=== PATIENT | male | born 1945 | race Caucasian/White ===

== ENCOUNTER 2018-08-07 10:12 | Observation (INO) | payer MEDICARE ==
--- NOTE | 2018-08-07 10:41 | ED ---
Head Injury - HPI Summary HPI Summary: Patient presents with fall 2 days ago. He reports he was walking [place] with his groceries when he accidentally slipped and hit his head on a piece of ice. He denies loss of consciousness although he had a headache at the time. Headache has resolved. Additionally he denies change in vision, nausea, vomiting, numbness, tingling, weakness. A few friends saw him fall on the side of the road and helped him get back home. States he's been doing pretty well since the fall other than he has some neck stiffness. He has not used heat nor ice nor has he taken any pain medication. But after calling Dr. Mcarthur to relay his fall and these symptoms, he was advised to come here to be evaluated. He denies taking any anticoagulant medication but does take an antihypertensive. He also has a history of Parkinson's dz and epilepsy however reports last seizure was 20 years ago. Follows w/ Dr. Mcarthur. No other injuries or complaints as a result of fall. He reports he lives alone and is able to cook and clean for himself. - History Of Current Complaint Chief Complaint: EDHeadInjury Stated Complaint: FALL/HIT HEAD 2 DAYS AGO Time Seen by Provider: 08/07/18 10:22 Hx Obtained From: Patient Pain Intensity: 0 - Allergies/Home Medications Allergies/Adverse Reactions: Allergies Allergy/AdvReac Type Severity Reaction Status Date / Time No Known Allergies Allergy Verified 08/07/18 10:13 Home Medications: Home Medications Acetaminophen [Tylenol Extra Strength] 500 - 1,000 mg PO Q6HR PRN 08/07/18 [ History Confirmed 08/07/18] Calcium Polycarbophil TAB* [Fibercon TAB*] 625 mg PO BID PRN 08/07/18 [History Confirmed 08/07/18] Cholecalciferol (Vitamin D3) [Vitamin D3] 800 unit PO DAILY 08/07/18 [History Confirmed 08/07/18] Divalproex DR TAB(*) [Tawana AVITIA(*)] 1,000 mg PO BEDTIME 08/07/18 [History Confirmed 08/07/18] Divalproex DR TAB(*) [Tawana AVITIA(*)] 500 mg PO QAM 08/07/18 [History Confirmed 08/07/18] Furosemide TAB* [Lasix TAB*] 20 mg PO DAILY 08/07/18 [History Confirmed 08/07/18 ] Loperamide HCl [Imodium A-D] 2 mg PO BID PRN 08/07/18 [History Confirmed ] Oxybutynin XL TAB* [Ditropan XL TAB*] 15 mg PO DAILY 08/07/18 [History Confirmed 08/07/18] Spironolactone/HCTZ 25-25 MG* [Aldactazide 25-25*] 1 tab PO QAM 08/07/18 [ History Confirmed 08/07/18] Triamcinolone 0.1% CREAM(NF) [Kenalog Cream 0.1%(NF)] 1 applic TOPICAL BID PRN 08/07/18 [History Confirmed 08/07/18] PMH/Surg Hx/FS Hx/Imm Hx Previously Healthy: Yes Endocrine/Hematology History: Denies: Hx Anticoagulant Therapy, Hx Blood Disorders, Hx Unexplained Bleeding Cardiovascular History: Reports: Hx Hypertension Sensory History: Reports: Hx Contacts or Glasses Opthamlomology History: Reports: Hx Contacts or Glasses Neurological History: Reports: Hx Seizures - last seizure 20 years ago, Other Neuro Impairments/Disorders - Parkinson's disease Infectious Disease History: No Infectious Disease History: Denies: Traveled Outside the [place] in Last 30 Days - Social History Occupation: Unemployed Lives: Alone Alcohol Use: None Hx Substance Use: No Substance Use Type: Reports: None Hx Tobacco Use: No Smoking Status (MU): Never Smoked Tobacco Review of Systems Constitutional: Negative Negative: Fatigue Eyes: Negative Negative: Photophobia, Blurred Vision, Diplopia ENT: Negative Negative: Epistaxis Cardiovascular: Negative Negative: Chest Pain Respiratory: Negative Negative: Shortness Of Breath Gastrointestinal: Negative Negative: Abdominal Pain, Vomiting, Nausea Positive: no symptoms reported Positive: Arthralgia Skin: Negative Positive: Headache - yesterday - resolved today Psychological: Normal All Other Systems Reviewed And Are Negative: Yes Physical Exam Triage Information Reviewed: Yes Vital Signs On Initial Exam: Initial Vitals Temp Pulse Resp BP Pulse Ox 96.8 F 62 16 123/75 94 08/07/18 10:13 08/07/18 10:13 08/07/18 10:13 08/07/18 10:13 08/07/18 10:13 Vital Signs Reviewed: Yes Appearance: Positive: Well-Appearing, No Pain Distress, Well-Nourished Skin: Positive: Warm, Skin Color Reflects Adequate Perfusion, Dry - no ecchymosis, no abrasions nor lacerations Head/Face: Positive: Normal Head/Face Inspection - no battlesign, no racoon eyes , no step off - NTTP Eyes: Positive: Normal, EOMI, CRIS - no photophobia, Conjunctiva Clear ENT: Positive: Pharynx normal - mucosa dry, TMs normal - no hemotympanum. Negative: Nasal drainage - no epistaxis Dental: Negative: Dental Fracture @ Neck: Positive: Supple, Tenderness @ - posterior central spine w/ mild TTP Respiratory/Lung Sounds: Positive: Breath Sounds Present Cardiovascular: Positive: S1, S2 Abdomen Description: Positive: Nontender, Soft Musculoskeletal: Positive: Pain @ - cervical spine w/ mild TTP, Other - ambulates independently Neurological: Positive: Alert, Oriented to Person Place, Time, CN Intact II-III , Other - tremor - Rt UE Psychiatric: Positive: Normal - pleasant, polite, cooperative. Negative: Affect /Mood Appropriate - somewhat blunted affect - Jackie Coma Scale Best Eye Response: 4 - Spontaneous Best Motor Response: 6 - Obeys Commands Best Verbal Response: 5 - Oriented Coma Scale Total: 15 Diagnostics - Vital Signs Vital Signs Temp Pulse Resp BP Pulse Ox 08/07/18 10:13 96.8 F 62 16 123/75 94 - Laboratory Result Diagrams: 08/07/18 13:02 Lab Statement: Any lab studies that have been ordered have been reviewed, and results considered in the medical decision making process. Head Injury Course/Dx Course Of Treatment: CT brain: chronic Right frontal subdural hematoma vs. hygroma - no acute intracranial pathology. Discussed w/ Dr. Stein who recommends supervision - since he lives alone and brother cannot be with him to supervise/observe (spoke w/ brother today - Roshan - lives in [place]). Will admit for observation as he has a h/o falls (confirmed by pt and brother) and needs observation with repeat CT scan in 1-[address] Stein[address] CT cervical spine: no acute findings, DDD - Diagnoses Provider Diagnoses: Fall from slipping on snow, Degenerative cervical disc, Chronic subdural hematoma Discharge - Sign-Out/Discharge Documenting (check all that apply): Patient Departure - Discharge Plan Condition: Stable Disposition: ADMITTED TO [facility] - Billing Disposition and Condition Condition: STABLE Disposition: Admitted to [facility]
[2018-08-07 14:01] LABS: Hematocrit 39 % (42-52); Mean Corpuscular HGB Conc 34 g/dl (31-36); Mean Corpuscular Hemoglobin 32 pg (27-31); Mean Corpuscular Volume 95 fL (80-94); Mean Platelet Volume 9.7 fL (7.4-10.4); Platelet Count 121 10^3/ul (150-450); Red Blood Count 4.08 10^6/ul (4.00-5.40); Red Cell Distribution Width 14 % (10.5-15)
[2018-08-07 14:11] LABS: Activated Partial Thrombo Time 27.4 seconds (26.0-36.3); INR 0.96 (0.77-1.02)
[2018-08-07] MEDS ORDERED: Dextrose 50% Syringe 50 ML* 25 GM/50 ML SYRINGE IV PUSH PRN (14:29)
[2018-08-07] MEDS ORDERED: Acetaminophen TAB* 325 MG PO PRN (14:29)
[2018-08-07 14:41] LABS: Albumin 3.7 g/dL (3.2-5.2); BUN/Creatinine Ratio 28.3 (8-20); Calcium 9.8 mg/dL (8.6-10.3); EGFR African American 98.4 (>60); EGFR Non-African American 81.3 (>60); Globulin 3.8 g/dL (2-4); Potassium 4.3 mmol/L (3.5-5.0); Total Bilirubin 0.4 mg/dL (0.2-1.0); Total Protein 7.5 g/dL (6.4-8.9)
[2018-08-07] MEDS: Insulin LISPRO* 1 UNITS UNIT SUBCUT SCH (16:32)
--- NOTE | 2018-08-07 16:43 | HP ---
CC: Dr. Villeda; Dr. Sanders * HISTORY AND PHYSICAL: DATE OF ADMISSION: 08/07/18 PRIMARY CARE PROVIDER: Dr. Villeda. ATTENDING PHYSICIAN WHILE IN THE HOSPITAL: Dr. Shirley Hickey * (report dictated by Abhay Malik NP). CHIEF COMPLAINT: Fall. HISTORY OF PRESENT ILLNESS: Mr. Gordillo is a 72-year-old male patient who has a history of Parkinson's, epilepsy, hypertension, diabetes, GERD and history of schizophrenia and prostate enlargement, BPH, who comes into the ED today. He says 2 days ago, he was dragging his groceries through the snow and he got into some slush and unfortunately he had an episode where he lost his footing, he fell and he hit his head on a chunk of ice. His friends told him to go to the ER that day, but he said he was fine and he did not want to come in, but over the last 2 days, they have been talking to him and convincing him to come in, so he decided to come in today. He denied having any headache. Denied feeling drowsy. Denied feeling lightheaded or dizzy. He says he has not had any worsening weakness as to one side to an extremity. He denied having any trouble with speech. He said he has been feeling well, but he was getting concerned because his friends were still asking him to come be evaluated. He denied having any chest pain or shortness of breath. There has been no fevers or chills. Denies having any abdominal pain or nausea or vomiting. He came in and he was found to have a chronic subdural or possibly a hygroma and because of this, we were asked to evaluate for admission. PAST MEDICAL HISTORY: Significant for: 1. Epilepsy. 2. Hypertension. 3. Diabetes. 4. BPH. 5. GERD. 6. Parkinson's. 7. Schizophrenia. PAST SURGICAL HISTORY: She has had a tonsillectomy and cholecystectomy. MEDICATIONS: Home meds according to the list that he provided includes: 1. Lasix 20 mg p.o. daily. 2. Carbidopa/levodopa 2 tablets at 0610, 1400, 1800. 3. Oxybutynin 15 mg daily. 4. Proscar 5 mg daily. 5. Vitamin D3 400 units p.o. b.i.d. 6. Depakote 500 mg in the morning, 1000 mg at bedtime. 7. Abilify 10 mg daily. 8. Flomax 0.4 mg daily. 9. Prilosec 20 mg p.o. daily. 10. Toprol-XL 25 mg at bedtime. 11. FiberCon 625 mg p.o. b.i.d. as needed. 12. Aldactazide 1 tablet p.o. daily. 13. Ketoconazole cream 1 application topically daily as needed. 14. Triamcinolone cream 1 application topically b.i.d. as needed. 15. Claritin 10 mg p.o. daily as needed. 16. Imodium 2 mg p.o. b.i.d. as needed. 17. Tylenol 500 to 1000 mg every 6 hours as needed. ALLERGIES TO MEDICATIONS: Include no known drug allergies. FAMILY HISTORY: Both his parents had cancer. SOCIAL HISTORY: He lives alone. He does have an aide that helps him daily. He does not smoke. He does not drink. His surrogate decision maker is his sister, Heena. REVIEW OF SYSTEMS: There is no documented fever. He denied having any significant weight change. He denies having any ear discharge. There was no rhinorrhea. He denies having any sore throat. No thyroid enlargement. Denies having any chest pain. There is no orthopnea, no nocturnal dyspnea and there was no abdominal pain. There is no nausea, no vomiting, no dysuria, no frequency, no seizure. No loss of consciousness. No pruritus. No skin ulcerations. Review of 14 systems was completed, all others negative. PHYSICAL EXAMINATION GENERAL: At this time, Mr. Gordillo is a 72-year-old male patient. He is sitting in the ED stretcher. He appears to be well nourished and well developed. He does not appear to be in any acute distress. VITAL SIGNS: Blood pressure 123/70, pulse 52, respirations 16, O2 sat 94%, temperature 96.8. HEENT: Head: Atraumatic, normocephalic. Eyes: EOMs are intact. Sclerae anicteric and not pale. Throat: Oral mucosa appears to be moist. No oropharyngeal erythema. NECK: Supple. LUNGS: Clear to auscultation bilaterally. There was no wheezes, rales, or rhonchi. HEART: Sounds S1, S2. He had a regular rate and rhythm. No murmurs, rubs, or gallops are appreciated. ABDOMEN: Soft, it was flat, nontender. Bowel sounds were present. EXTREMITIES: Pulses were 2+ throughout. He is moving all 4 extremities with 5/ 5 strength. NEUROLOGIC: He is awake. He is alert. He is oriented x3. He does have a resting tremor to his upper extremities. He has no gross focal deficits. SKIN: Grossly intact. DIAGNOSTIC STUDIES/LAB DATA: His labs revealed a WBC of 5.0, RBC of 4.08, hemoglobin of 13.0, hematocrit 39, platelet count of 121. INR 0.96, PTT 27.4. Sodium was 141, potassium 4.3, chloride of 108, bicarb 28, BUN 26, creatinine 0.92, glucose of 91, calcium 9.8. Total bili 0.4, AST 18, ALT 11, alk phos 55. Albumin 3.7. His valproic acid is pending. He had a brain CT obtained today, which showed chronic right frontal subdural hematoma versus hygroma. No acute intracranial pathology. Cervical spine CT obtained today showed no acute fracture of the cervical spine is noted, degenerative disk disease at multiple levels. Old medical records were reviewed. ASSESSMENT AND PLAN: Mr. Gordillo is a 72-year-old male patient coming into the ED today with complaints of a mechanical fall 2 days ago, now with CT findings of possible subdural hematoma which is chronic. He will be admitted under observation status for: 1. Status post fall, possible subdural hematoma versus hygroma. Dr. Sanders was consulted by the ED, who recommended observation. I will go ahead and observe him with frequent neuro checks. I will check a CT in the morning and I will get a neurosurgical evaluation. He appears to be stable at this point. 2. Epilepsy. We are checking a valproic acid level. We will continue his meds as prescribed and we will continue with seizure precautions. 3. Hypertension. Continue meds as prescribed. 4. Diabetes. I am putting him on a lispro sliding scale. 5. Benign prostatic hypertrophy. Continue meds as prescribed. 6. Gastroesophageal reflux disease. Continue PPI therapy. 7. Parkinson's. Continue his carbidopa/levodopa. I ordered a PT evaluation for him and he can follow with Dr. Mcarthur. 8. Schizophrenia. Continue with supportive care. 9. DVT prophylaxis. Because of the concern of subdural hematoma, I will place him on SCDs. 10. Fluids, electrolytes, and nutrition. He can have a healthy diet. 11. Code status: Full code. TIME SPENT: Time spent on the admission was 60 minutes, greater than half of the time was spent [id number] with the patient obtaining my history and physical, other half of the time was spent going over the plan of care with the patient and implementing plan of care. I did discuss the plan of care with my attending, Dr. Hickey, she is in agreement. ABHAY MALIK, TIMBER GIRDLER [id number]/CPS #: [id number] KATRIN
[2018-08-07] MEDS: Carbidopa/Levodop 25/100 MG TAB(*) PO SCH (17:36)
[2018-08-07] MEDS ORDERED: Divalproex DR TAB(*) 500 MG PO SCH (21:00)
[2018-08-07] MEDS ORDERED: Metoprolol Succinate XL TAB* 25 MG PO SCH (21:00)
[2018-08-08] MEDS: Carbidopa/Levodop 25/100 MG TAB(*) PO SCH ×3 (06:04→15:06)
[2018-08-08 06:11] LABS: ABS Basophils 0.1 10^3/ul (0-0.2); ABS Eosinophils 0.2 10^3/ul (0-0.6); ABS Lymphocytes 1.3 10^3/ul (1.0-4.8); ABS Monocytes 0.4 10^3/ul (0-0.8); ABS Neutrophils 2.4 10^3/ul (1.5-7.7); ABS Nucleated RBC 0 10^3/ul; Eosinophil % 4.4 %; Hematocrit 38 % (42-52); Hemoglobin 12.9 g/dl (14.0-18.0); Lymphocyte % 29.2 %; Mean Corpuscular HGB Conc 34 g/dl (31-36); Mean Corpuscular Hemoglobin 32 pg (27-31); Mean Corpuscular Volume 94 fL (80-94); Mean Platelet Volume 8.7 fL (7.4-10.4); Nucleated Red Blood Cells % 0.2; Platelet Count 115 10^3/ul (150-450); Red Blood Count 4.05 10^6/ul (4.00-5.40); Red Cell Distribution Width 15 % (10.5-15); White Blood Count 4.4 10^3/ul (3.5-10.8)
[2018-08-08 06:16] LABS: INR 0.98 (0.77-1.02)
[2018-08-08 06:31] LABS: BUN/Creatinine Ratio 23.2 (8-20); Calcium 9.9 mg/dL (8.6-10.3); EGFR African American 94.8 (>60); EGFR Non-African American 78.4 (>60); Potassium 4.2 mmol/L (3.5-5.0)
--- NOTE | 2018-08-08 08:35 | PN ---
Progress Note - Progress Note Date of Service: 08/07/18 Note: Patient was seen yesterday. Full note dictated.([id number]) 72 yom reported fall [address] findings cw Rt frontal chronic SDH vs hygroma. Repeat CT stable. No NS intervention needed at this point. May repeat CT of head in 1 month and follow up in our office or with his PCP or Dr Mcarthur. Angela Sanders MD
[2018-08-08] MEDS: Insulin LISPRO* 1 UNITS UNIT SUBCUT SCH ×2 (08:38→14:23)
[2018-08-08] MEDS ORDERED: Finasteride TAB* 5 MG PO SCH (09:00)
[2018-08-08] MEDS ORDERED: Oxybutynin XL TAB* 5 MG PO SCH (09:00)
[2018-08-08] MEDS ORDERED: Divalproex DR TAB(*) 500 MG PO SCH (09:00)
[2018-08-08] MEDS ORDERED: ARIPiprazole TAB* 5 MG PO SCH (09:00)
[2018-08-08] MEDS ORDERED: Spironolactone/HCTZ 25-25 MG* 1 TAB PO SCH (09:00)
[2018-08-08] MEDS ORDERED: Tamsulosin CAP* 0.4 MG PO SCH (09:00)
[2018-08-08] MEDS ORDERED: Furosemide TAB* 20 MG PO SCH (09:00)
[2018-08-08] MEDS ORDERED: Pantoprazole TAB * 40 MG TAB PO SCH (09:00)
--- NOTE | 2018-08-08 10:01 | CONS ---
CONSULTATION REPORT: DATE OF CONSULT: 08/07/18 HISTORY OF PRESENT ILLNESS: The patient is a very pleasant 72-year-old gentleman who reports he sustained a fall 2 days prior to his admission while he was attempting to cross the road. At that time, the patient did not have loss of consciousness. He contacted Dr. Mcarthur's office, his neurologist, and he was directed to the emergency room where a CT scan of the brain revealed a small right frontal subdural chronic hematoma versus hygroma. For this reason and because of his history of falls, he was admitted to the hospital. I was requested to see the patient by ED and internal medicine team regarding above CT scan findings. The patient was seen on 08/07/18 in the floor. The patient denies any loss of consciousness, denies loss of memory. He reports that he has no neck or back pain. He denies any headache. He denies any weakness, numbness, or tingling of extremities. Of note, the patient has history of Parkinson disease and epilepsy, with last seizure approximately 20 years ago and he is followed by Dr. Mcarthur. The patient ambulates with some difficulties. He denies any urinary or GI incontinence. The patient lives alone. PAST MEDICAL HISTORY: Hypertension, seizures, Parkinson disease. HOME MEDICATIONS: The patient was on: 1. Acetaminophen. 2. Calcium. 3. Cholecalciferol. 4. Divalproex. 5. Furosemide. 6. Loperamide. 7. Oxybutynin. 8. Spironolactone. 9. Triamcinolone. ALLERGIES: No known drug allergies. SOCIAL HISTORY: Tobacco negative. Alcohol negative. Recreational drug use negative. PHYSICAL EXAM: The patient is not in acute distress. He is awake, alert, oriented x3. His pupils are equal and reactive. Cranial nerves II through XII are grossly intact. Motor 4-5/5 in all extremities. No pronator drift. Of note, the patient has a resting tremor consistent with his diagnosis of Parkinson disease and also cogwheel rigidity in both upper extremities. Sensory is grossly intact to light touch. Deep tendon reflexes +1 bilaterally. No clonus, no Babinski. Huma's negative. Straight leg test negative on the lying position. He has no tenderness to palpation of the thoracic or lumbar spine. He has free range of motion of the cervical spine. DIAGNOSTIC STUDIES/LAB DATA: The patient had a CT scan of the brain that revealed a small right frontal subdural chronic hematoma versus hygroma without significant mass effect with preservation of sulci. ASSESSMENT: The patient is a very pleasant 72-year-old gentleman with history of Parkinson disease and seizures who reports a fall [address] scan findings consistent with chronic right frontal subdural hematoma versus hygroma. PLAN: The patient was admitted for observation. On the following morning, he had a repeat CT scan of the brain that does not show any changes. I do not think that the patient is in need of neurosurgical intervention at this point. There is no mass effect and there is no evidence of neurological compromise or deficit related to this collection in my opinion. Based on the appearance of the CT scan, I think a repeat CT scan in approximately 1 month would be appropriate for him. We will be happy to follow the patient in the office or the patient may follow with his PCP or Dr. Mcarthur in the future. Thank you for allowing us to participate in the care of this patient. Please do not hesitate to contact our office in case you have any further questions or concerns regarding the care of this patient. [id number]/CPS #: [id number] MTDD
[2018-08-08 17:24] VITALS: BP 105/64
--- NOTE | 2018-08-08 21:37 | DS ---
CC: Dr. Villeda; Dr. Sanders.* DISCHARGE SUMMARY: DATE OF ADMISSION: 08/07/18 DATE OF DISCHARGE: 08/08/18 ATTENDING PHYSICIAN: Shirley Hickey MD ATTENDING PHYSICIAN FOR TODAY: Danni Muñoz DO * (DICTATED BY CESAR BOCANEGRA NP) PRIMARY CARE PROVIDER: Dr. Villeda. NEUROSURGEON: Dr. Sanders. HOSPITAL COURSE: Please refer to admission H and P from yesterday, but in short , Mr. Gordillo is a 72-year-old male patient who lives at [facility]. He has got pretty extensive neurologic history in the form of Parkinson's and epilepsy, also has history of schizophrenia, diabetes, and hypertension. The patient does live independently and has assistance in his home. He was food shopping in the snow, slipped on some slush the day before admission and hit his head on the ice. The patient was urged to go to the emergency department by family and friends at that point, the patient declined. The patient did come to the ED the following day after being convinced by family to come for evaluation. The patient had imaging at that time, which revealed subdural hematoma versus a hygroma. The patient was seen by Dr. Sanders who recommended a repeat CT in the morning. Neurosurgical evaluation indicated that there was no acute need for intervention or surgery. The patient's findings remain stable. The patient remained neurologically intact. He did not show any seizure activity. Blood pressure, his diabetes, his Parkinson's, and mood all remained at baseline. The patient did have physical therapy evaluation, which revealed he was at his baseline. The patient expressed his wish to be discharged back to home where he has continued supportive care. The patient did not meet criteria for subacute rehab, he will therefore be discharged to home. REVIEW OF SYSTEMS ON THE DAY OF DISCHARGE: The patient denies any fever, fatigue, or chills; no headache, no dizziness, no blurred vision; no chest pain , no shortness of breath; no nausea, vomiting, or diarrhea; no arthralgias or myalgias. His tremors are at baseline, and he has no further constitutional complaints. PHYSICAL EXAMINATION: Reveals an older-appearing male, tremulous at baseline, but in no acute distress. His vital signs today are: Blood pressure 138/82, heart rate 59, respiratory rate 20, O2 saturation 97% on room air with a temperature of 97.4. HEENT: The patient is atraumatic, normocephalic. PERRLA with nonicteric sclerae. Oral mucosa is moist. Dentition is poor. Tongue is midline. Neck is supple, nontender. No JVD noted, no carotid bruit auscultated. Lungs are clear bilaterally to auscultation. No wheezing, rhonchi , or rales. Cardiovascular: S1, S2 present. No murmurs, gallops, or rubs noted. Slightly bradycardic. Rhythm is regular. Abdomen is soft, nontender, nondistended. Positive bowel sounds in all four quadrants. is deferred. Musculoskeletal: There is no clubbing, no cyanosis. He has trace bipedal edema. Gross sensation is intact. Motor also intact. Neurologic: Tremors at rest consistent with his Parkinson's disease, no seizure activity, no further focal deficits noted. Psychiatric: He is cooperative and appropriate. LABORATORY DATA: WBC 4.4, RBC 4.05, hemoglobin 12.9, hematocrit 38, platelets 115; sodium 140, potassium 4.2, chloride 107, CO2 27; BUN 22, creatinine 0.95, GFR 78.4, glucose 93, calcium 9.9. Liver function within normal limits. Valproic acid level is 55.0. INR is 0.98. IMAGING: CT of the spine showed no fracture of the cervical spine, degenerative disc disease at multiple levels. Initial CT of the brain dated shows a chronic right frontal subdural hematoma versus hygroma with no further acute intracranial pathology. Repeat CT of the head dated 08/08/18 shows no evidence of acute intracranial hemorrhage, persistent extraaxial fluid collection located overlying the right frontal lobe, which was also noted on prior study the day before and is unchanged. Per Dr. Sanders from Neurosurgery, who evaluated the patient, he evaluated the repeat CT, which is stable and recommends no acute neurosurgical intervention is warranted. The patient may follow up with repeat CT of the head in 1 month, if any additional symptomatology is noted. DISCHARGE DIAGNOSES: 1. Mechanical fall with small subdural hematoma, stable. 2. History of epilepsy, stable. 3. History of hypertension, stable. 4. History of diabetes, blood glucose, stable. 5. History of BPH, stable. 6. History of gastroesophageal reflux disease, stable. 7. History of Parkinson's, at baseline. 8. History of schizophrenia, at baseline. MEDICATIONS FOR DISCHARGE: No changes in his home medication regimen. These include: 1. Lasix 20 mg p.o. daily. 2. Sinemet 25/100 2 tabs p.o. at 0600, 10 o'clock, 1400, and 1800. 3. Ditropan XL 30 mg p.o. daily. 4. Proscar 5 mg p.o. daily. 5. Vitamin D3 400 units p.o. b.i.d. 6. Depakote 500 mg in the morning, 1000 mg at bedtime. 7. Abilify 10 mg p.o. daily. 8. Flomax 0.4 mg daily. 9. Omeprazole 20 mg in the morning. 10. Metoprolol succinate XL 25 mg at bedtime. 11. FiberCon 625 mg b.i.d. p.r.n. 12. Aldactazide 25/25 1 tab q. a.m. 13. Nizoral 2% cream apply daily as needed. 14. Kenalog cream apply daily as needed. 15. Claritin 10 mg p.o. daily as needed. 16. Imodium AD 2 mg p.o. b.i.d. as needed. 17. Extra Strength Tylenol 500 to 1000 mg q.6 hours as needed for pain. DISPOSITION: The patient will be discharged back to [facility] with his regular home services. The patient does have extended care program in the form of nursing services and physical therapy services in the home and he is ambulatory and currently at his baseline. DIET: Heart healthy as tolerated. FOLLOWUP: The patient is instructed to follow up with his primary care provider , Dr. Villeda, in the next 4 to 7 days and Neurosurgery. If Dr. Villeda feels it is warranted, he can refer him back to see Dr. Sanders for a followup CT in 30 days and followup appointment in the office, if needed. DISPOSITION: Discharged to home in stable condition. All questions were answered. The patient stated his understanding of discharge instructions, medications, and followups. TIME SPENT: 35 minutes interfacing with the patient and staff regarding discharge plan of care. CESAR BOCANEGRA, DOCK ATTENDANT [id number]/[facility] #: [id number] BR[facility]XCARE HEALTH SYSTEMIrene
== END 2018-08-08 17:18 | disposition home or self-care (01) ==
LOC: ED 10:12 → MEDTELE 14:25
PROVIDERS: ADMIT Internal Medicine; ATTEND Hospitalist
DX: S06.5X9A Traumatic subdural hemorrhage with loss of consciousness of unspecified duration, initial encounter (principal); W00.0XXA Fall on same level due to ice and snow, initial encounter; Y92.9 Unspecified place or not applicable; G40.909 Epilepsy, unspecified, not intractable, without status epilepticus; I10 Essential (primary) hypertension; E11.9 Type 2 diabetes mellitus without complications; N40.0 Benign prostatic hyperplasia without lower urinary tract symptoms; K21.9 Gastro-esophageal reflux disease without esophagitis; G20 Parkinson's disease; F20.9 Schizophrenia, unspecified; R51 Headache
CPT/HCPCS: 36415; 70450; 72125; 80048; 80053; 80164; 85025; 85027; 85610; 85730; 96374; 99282; A9270-GY; G8978-GP-CI; G8979-GP-CH

== ENCOUNTER → 2018-10-27 18:14 | Emergency (ER) | payer MEDICARE ==
--- NOTE | 2018-10-27 18:29 | ED ---
HPI Chest Pain - HPI Summary HPI Summary: This pt is a 73 y/o male presenting to [facility] via EMS for chest pain and SOB today while doing exercise. Pt reports he is in an exercise program at [facility] for Parkinson's disease and today he had chest pain while doing exercises. Pt describes pressure in his chest that came on "slowly throughout the day." His home health aide notes pt had an irregular heart beat. At baseline pt has edema and his Lasix has been increased for this. EMS administered nitroglycerin and aspirin [employer] and pt reports chest pain resolved after nitro. EMS also noted pt had an irregular pulse. Denies cardiac hx. Denies hx of afib, aflutter, irregular heart beat. - History of Current Complaint Hx Obtained From: Patient Onset/Duration: Started Hours Ago, Still Present Timing: Lasting Hours Initial Severity: Moderate Current Severity: None Pain Intensity: 0 Pain Scale Used: 0-10 Numeric Chest Pain Location: Diffuse Chest Pain Radiates: No Character: Pressure/Squeezing - pressure Aggravating Factor(s): Nothing Alleviating Factor(s): NTG 123, EMS Tx - aspirin and NTG Associated Signs and Symptoms: Positive: Chest Pain, Shortness of Breath, Palpitations. Negative: Fever - Allergy/Home Medications Allergies/Adverse Reactions: Allergies Allergy/AdvReac Type Severity Reaction Status Date / Time No Known Allergies Allergy Verified 08/07/18 10:13 PMH/Surg Hx/FS Hx/Imm Hx Endocrine/Hematology History: Reports: Hx Diabetes Denies: Hx Anticoagulant Therapy, Hx Blood Disorders, Hx Unexplained Bleeding Cardiovascular History: Reports: Hx Congestive Heart Failure, Hx Hypertension GI History: Reports: Other GI Disorders - [place] Sensory History: Reports: Hx Contacts or Glasses Denies: Hx Hearing Aid Opthamlomology History: Reports: Hx Contacts or Glasses Neurological History: Reports: Hx Seizures - last seizure 20 years ago, Other Neuro Impairments/Disorders - Parkinson's disease - Family History Family History: Both parens with cancer. - Social History Alcohol Use: None Hx Substance Use: No Substance Use Type: Reports: None Hx Tobacco Use: No Smoking Status (MU): Never Smoked Tobacco Review of Systems Negative: Fever Positive: Palpitations - irregular, Chest Pain Positive: Shortness Of Breath All Other Systems Reviewed And Are Negative: Yes Physical Exam - Summary Physical Exam Summary: Appearance: Well-appearing, Well-nourished, lying in bed comfortably Skin: Warm, dry, no obvious rash Eyes: sclera anicteric, no conjunctival pallor ENT: mucous membranes moist, pharynx appears normal Neck: Supple, nontender Respiratory: Clear to auscultation, no signs of respiratory distress Cardiovascular: Normal S1, S2. No murmurs. Normal distal pulses in tibial and radial bilaterally. Abdomen: Soft, nontender, normal active bowel sounds present Musculoskeletal: Normal, Strength/ROM Intact Neurological: A&Ox3, awake and alert, mentation is normal, speech is fluent and appropriate. Intermittent tremor mostly noted on the right arm. Psychiatric: affect is normal, does not appear anxious or depressed Triage Information Reviewed: Yes Vital Signs Reviewed: Yes Diagnostics - Laboratory Result Diagrams: 10/27/18 18:39 10/27/18 18:39 Lab Statement: Any lab studies that have been ordered have been reviewed, and results considered in the medical decision making process. - Radiology chest XR Radiology Interpretation Completed By: ED Physician Summary of Radiographic Findings: negative XR. - EKG 18:30 Cardiac Rate: NL - at 74 bpm EKG Rhythm: Sinus Rhythm Summary of EKG Findings: Right bundle branch block Chest Pain Course/Dx - Course Assessment/Plan: Pt is a 73 y/o male wh presents via EMS for chest pain and SOB today while doing exercise. Pt describes pressure in his chest that came on "slowly throughout the day." His home health aide notes pt had an irregular heart beat. At baseline pt has edema and his Lasix has been increased for this. Of note, when EMS arrived on scene and evaluated the patient, he had a irregular heartbeat and they do were able to get a strip that showed him to be in atrial fibrillation. He apparently has converted spontaneously in the interim, and has remained pain free. I am awaiting a second troponin, but barring an elevation in that, I suspect his discomfort was due to his atrial fibrillation which is now resolved. He should not require hospitalization, but he will need follow-up with his regular doctor regarding this arrhythmia. - Diagnoses Provider Diagnoses: Atrial fibrillation, Chest pain Discharge - Sign-Out/Discharge Documenting (check all that apply): Patient Departure - Discharge home Patient Received Moderate/Deep Sedation with Procedure: No - Discharge Plan Condition: Good Disposition: HOME Patient Education Materials: A-fib (Atrial Fibrillation) (ED), Chest Pain (ED) Referrals: William Villeda MD [Primary Care Provider] - 3 Days Additional Instructions: When the paramedics picked you up, you have a heart rhythm problem called atrial fibrillation. I suspect this was what caused your discomfort through the day. The blood tests we ran did not show any injury to the heart, and your discomfort has resolved, so it is safe for you to go home tonight, but you should see your regular doctor as you will likely need some further testing to determine if this rhythm problem is happening sporadically, and also likely some type of stress test. If you develop a recurrence of your symptoms, you should return here to the ER. - Billing Disposition and Condition Condition: GOOD Disposition: Home - Attestation Statements Document Initiated by Maria C: Yes Documenting Kitaibe: Marjan Burnett Provider For Whom Maria C is Documenting (Include Credential): Chago Oswald MD Scribe Attestation: Marjan Armstrong, scribed for Chago Oswald MD on 10/28/18 at 1417. Scribe Documentation Reviewed: Yes Provider Attestation: The documentation as recorded by the Marjan tompkins accurately reflects the service I personally performed and the decisions made by me, Chago Oswald MD Status of Scribe Document: Viewed
[2018-10-27 18:48] LABS: ABS Basophils 0 10^3/ul (0-0.2); ABS Eosinophils 0.1 10^3/ul (0-0.6); ABS Lymphocytes 1.3 10^3/ul (1.0-4.8); ABS Monocytes 0.5 10^3/ul (0-0.8); ABS Neutrophils 2.8 10^3/ul (1.5-7.7); ABS Nucleated RBC 0 10^3/ul; Eosinophil % 2.2 %; Hematocrit 37 % (36-46); Hemoglobin 12.7 g/dL (14.0-18.0); Lymphocyte % 28.2 %; Mean Corpuscular HGB Conc 34 g/dL (31-36); Mean Corpuscular Hemoglobin 32 pg (27-31); Mean Corpuscular Volume 94 fL (80-94); Mean Platelet Volume 9.5 fL (7.4-10.4); Nucleated Red Blood Cells % 0; Platelet Count 135 10^3/uL (150-450); Red Blood Count 3.94 10^6 /uL (4.18-5.48); Red Cell Distribution Width 14 % (10.5-15); White Blood Count 4.7 10^3/uL (3.5-10.8)
[2018-10-27 19:05] LABS: Albumin 3.9 g/dL (3.2-5.2); Albumin/Globulin Ratio 1.1 (1-3); BUN/Creatinine Ratio 30.2 (8-20); Calcium 9.8 mg/dL (8.6-10.3); EGFR Non-African American 50.4 (>60); Globulin 3.7 g/dL (2-4); Potassium 3.8 mmol/L (3.5-5.0); Total Bilirubin 0.6 mg/dL (0.2-1.0); Total Protein 7.6 g/dL (6.4-8.9)
[2018-10-27 19:07] LABS: Troponin I 0.02 ng/mL (<0.04)
[2018-10-27 21:37] VITALS: BP 125/58
== END | disposition home or self-care (01) ==
LOC: ED 18:14
DX: I48.91 Unspecified atrial fibrillation (principal); R07.9 Chest pain, unspecified; R06.02 Shortness of breath; R00.2 Palpitations; E11.9 Type 2 diabetes mellitus without complications; I10 Essential (primary) hypertension; I50.9 Heart failure, unspecified
CPT/HCPCS: 36415; 71045; 80053; 84484; 85025; 93005; 99285

== ENCOUNTER 2019-12-13 01:13 | Inpatient (IN) ==
[2019-12-13] MEDS ORDERED: Al Hydrox/Mg Hydrox/Simet LIQ 30 ML UDC PO PRN (12:21)
[2019-12-13] MEDS ORDERED: Senna TAB 8.6 mg TAB PO PRN (12:21)
[2019-12-13] MEDS ORDERED: Calcium Polycarbophil 625mg TB PO PRN (12:38)
[2019-12-13] MEDS ORDERED: Dextrose 50% Syringe 50 ml 25 GM/50 ML SYRINGE IV PUSH PRN (13:07)
[2019-12-13] MEDS: Bacitracin OINTMENT TUBE TOPICAL SCH ×2 (15:37→21:54)
[2019-12-13] MEDS: Carbidopa/Levodop 25/100 MG TAB(*) PO SCH ×2 (15:38→18:52)
[2019-12-13] MEDS: Enoxaparin 40 MG/0.4 ML SYR(*) SUBCUT SCH (15:38)
[2019-12-13] MEDS ORDERED: Insulin LISPRO 100 units/ml(*) SUBCUT SCH (16:30)
[2019-12-13] MEDS: Insulin LISPRO 100 units/ml(*) SUBCUT SCH ×2 (18:55→21:55)
[2019-12-13] MEDS: Divalproex DR 500 mg TAB(*) PO SCH (21:54)
[2019-12-14] MEDS: Carbidopa/Levodop 25/100 MG TAB(*) PO SCH ×4 (05:43→17:46)
[2019-12-14 05:59] LABS: Hematocrit 38 % (42-52); Hemoglobin 12.9 g/dL (14.0-18.0); Mean Corpuscular HGB Conc 34 g/dL (31-36); Mean Corpuscular Hemoglobin 31 pg (27-31); Mean Corpuscular Volume 91 fL (80-94); Mean Platelet Volume 9.3 fL (7.4-10.4); Platelet Count 117 10^3/uL (150-450); Red Blood Count 4.12 10^6 /uL (4.18-5.48); Red Cell Distribution Width 17 % (10-15); White Blood Count 5.8 10^3/uL (3.5-10.8)
[2019-12-14 06:02] LABS: ABS Eosinophils 0.3 10^3/ul (0-0.6); ABS Lymphocytes 1.1 10^3/ul (1.0-4.8); ABS Monocytes 0.7 10^3/ul (0-0.8); Lymphocyte % 18.3 %; Nucleated Red Blood Cells % 0.2
[2019-12-14 06:15] LABS: Albumin 3.2 g/dL (3.2-5.2); Albumin/Globulin Ratio 0.8 (1-3); BUN/Creatinine Ratio 24.3 (8-20); Calcium 9.3 mg/dL (8.6-10.3); EGFR African American 85.9 (>60); Globulin 3.8 g/dL (2-4); Magnesium 1.9 mg/dL (1.9-2.7); Potassium 4.5 mmol/L (3.5-5.0); Total Bilirubin 0.7 mg/dL (0.2-1.0)
[2019-12-14] MEDS: Insulin LISPRO 100 units/ml(*) SUBCUT SCH ×5 (08:10→20:48)
[2019-12-14] MEDS: Aspirin EC 81 mg TAB.EC (enteric coated) PO SCH (09:33)
[2019-12-14] MEDS: Bacitracin OINTMENT TUBE TOPICAL SCH ×3 (09:35→20:49)
[2019-12-14] MEDS: Divalproex DR 500 mg TAB(*) PO SCH ×2 (09:35→20:04)
[2019-12-14] MEDS: Enoxaparin 40 MG/0.4 ML SYR(*) SUBCUT SCH (14:44)
[2019-12-15] MEDS: Carbidopa/Levodop 25/100 MG TAB(*) PO SCH ×4 (06:19→17:06)
[2019-12-15] MEDS: Insulin LISPRO 100 units/ml(*) SUBCUT SCH ×4 (07:39→21:33)
[2019-12-15] MEDS: Aspirin EC 81 mg TAB.EC (enteric coated) PO SCH (08:24)
[2019-12-15] MEDS: Divalproex DR 500 mg TAB(*) PO SCH ×2 (08:25→19:47)
[2019-12-15] MEDS: Bacitracin OINTMENT TUBE TOPICAL SCH ×3 (10:38→19:50)
[2019-12-15] MEDS: Enoxaparin 40 MG/0.4 ML SYR(*) SUBCUT SCH (13:59)
[2019-12-16] MEDS: Carbidopa/Levodop 25/100 MG TAB(*) PO SCH ×4 (05:34→17:23)
[2019-12-16] MEDS: Insulin LISPRO 100 units/ml(*) SUBCUT SCH ×4 (09:23→20:11)
[2019-12-16] MEDS: Aspirin EC 81 mg TAB.EC (enteric coated) PO SCH (09:30)
[2019-12-16] MEDS: Divalproex DR 500 mg TAB(*) PO SCH ×2 (09:31→19:57)
[2019-12-16] MEDS: Bacitracin OINTMENT TUBE TOPICAL SCH ×3 (09:31→20:00)
[2019-12-16] MEDS: Magnesium Hydroxide LIQ 30 ML UDC PO PRN (09:44)
[2019-12-16] MEDS: Enoxaparin 40 MG/0.4 ML SYR(*) SUBCUT SCH (13:00)
[2019-12-17] MEDS: Carbidopa/Levodop 25/100 MG TAB(*) PO SCH ×4 (04:55→18:18)
[2019-12-17] MEDS: Insulin LISPRO 100 units/ml(*) SUBCUT SCH ×4 (08:03→20:53)
[2019-12-17] MEDS: Bacitracin OINTMENT TUBE TOPICAL SCH ×3 (08:54→20:54)
[2019-12-17] MEDS: Magnesium Hydroxide LIQ 30 ML UDC PO PRN (09:14)
[2019-12-17] MEDS: Divalproex DR 500 mg TAB(*) PO SCH ×2 (09:16→20:54)
[2019-12-17] MEDS: Aspirin EC 81 mg TAB.EC (enteric coated) PO SCH (09:16)
[2019-12-17] MEDS: Enoxaparin 40 MG/0.4 ML SYR(*) SUBCUT SCH (13:24)
[2019-12-18] MEDS: Carbidopa/Levodop 25/100 MG TAB(*) PO SCH ×4 (06:07→18:35)
[2019-12-18] MEDS: Bacitracin OINTMENT TUBE TOPICAL SCH ×3 (08:59→20:13)
[2019-12-18] MEDS: Aspirin EC 81 mg TAB.EC (enteric coated) PO SCH (08:59)
[2019-12-18] MEDS: Divalproex DR 500 mg TAB(*) PO SCH ×2 (08:59→20:13)
[2019-12-18] MEDS: Insulin LISPRO 100 units/ml(*) SUBCUT SCH ×3 (09:06→17:11)
[2019-12-18] MEDS: Enoxaparin 40 MG/0.4 ML SYR(*) SUBCUT SCH (15:20)
[2019-12-19] MEDS: Carbidopa/Levodop 25/100 MG TAB(*) PO SCH ×4 (05:50→17:42)
[2019-12-19] MEDS: Divalproex DR 500 mg TAB(*) PO SCH ×2 (08:43→20:36)
[2019-12-19] MEDS: Aspirin EC 81 mg TAB.EC (enteric coated) PO SCH (08:44)
[2019-12-19] MEDS: Bacitracin OINTMENT TUBE TOPICAL SCH ×3 (08:45→20:36)
[2019-12-19] MEDS: Enoxaparin 40 MG/0.4 ML SYR(*) SUBCUT SCH (12:52)
[2019-12-20] MEDS: Carbidopa/Levodop 25/100 MG TAB(*) PO SCH ×4 (05:38→18:15)
[2019-12-20] MEDS: Aspirin EC 81 mg TAB.EC (enteric coated) PO SCH (08:10)
[2019-12-20] MEDS: Magnesium Hydroxide LIQ 30 ML UDC PO PRN (08:11)
[2019-12-20] MEDS: Divalproex DR 500 mg TAB(*) PO SCH ×2 (08:11→20:31)
[2019-12-20] MEDS: Bacitracin OINTMENT TUBE TOPICAL SCH ×3 (11:39→20:31)
[2019-12-20] MEDS: Enoxaparin 40 MG/0.4 ML SYR(*) SUBCUT SCH (12:46)
[2019-12-21] MEDS: Carbidopa/Levodop 25/100 MG TAB(*) PO SCH ×3 (05:40→13:38)
[2019-12-21 05:55] LABS: Hematocrit 37 % (42-52); Hemoglobin 12.7 g/dL (14.0-18.0); Mean Corpuscular HGB Conc 34 g/dL (31-36); Mean Corpuscular Hemoglobin 31 pg (27-31); Mean Corpuscular Volume 92 fL (80-94); Mean Platelet Volume 8.4 fL (7.4-10.4); Platelet Count 167 10^3/uL (150-450); Red Blood Count 4.04 10^6 /uL (4.18-5.48); Red Cell Distribution Width 17 % (10-15); White Blood Count 4.9 10^3/uL (3.5-10.8)
[2019-12-21 06:12] LABS: Albumin 3.2 g/dL (3.2-5.2); Albumin/Globulin Ratio 0.9 (1-3); BUN/Creatinine Ratio 25.5 (8-20); Calcium 9.3 mg/dL (8.6-10.3); EGFR African American 79.6 (>60); EGFR Non-African American 65.8 (>60); Globulin 3.7 g/dL (2-4); Magnesium 1.8 mg/dL (1.9-2.7); Potassium 4.6 mmol/L (3.5-5.0); Total Bilirubin 0.4 mg/dL (0.2-1.0); Total Protein 6.9 g/dL (6.4-8.9)
[2019-12-21 06:29] VITALS: BP 117/67
[2019-12-21 06:33] LABS: ABS Basophils 0.1 10^3/ul (0-0.2); ABS Eosinophils 0.4 10^3/ul (0-0.6); ABS Lymphocytes 1.3 10^3/ul (1.0-4.8); ABS Monocytes 0.5 10^3/ul (0-0.8); Eosinophil % 8.9 %; Lymphocyte % 25.9 %; Nucleated Red Blood Cells % 0.1
[2019-12-21] MEDS: Aspirin EC 81 mg TAB.EC (enteric coated) PO SCH (09:45)
[2019-12-21] MEDS: Divalproex DR 500 mg TAB(*) PO SCH (09:46)
[2019-12-21] MEDS: Bacitracin OINTMENT TUBE TOPICAL SCH ×2 (09:48→12:36)
[2019-12-21] MEDS: Enoxaparin 40 MG/0.4 ML SYR(*) SUBCUT SCH (13:38)
== END 2019-12-21 12:58 | disposition home health service (06) | DRG 57 ==
LOC: PMRU 01:13
PROVIDERS: ADMIT Physical Medicine & Rehabilitation; ATTEND Physical Medicine & Rehabilitation